=== PATIENT | male | born 1950 | race Caucasian/White ===

== ENCOUNTER 2023-08-12 12:21 | Inpatient (IN) | payer OTHER, MEDICAID ==
[~2023-08-12] VITALS: Ht 170.2 cm; Wt 71.7 kg
[2023-08-12 12:56] LABS: CHLORIDE 104 mEq/L (98-107); POTASSIUM 3.7 mEq/L (3.5-5.1); SODIUM 139 mEq/L (136-145)
[2023-08-12 12:57] LABS: CALCIUM 9.9 mg/dL (8.7-10.4); CARBON DIOXIDE 26 mEq/L (21-32)
[2023-08-12 13:00] LABS: BASOPHILS % 0.3 % (0.0-2.0); EOSINOPHILS % 3.1 % (0.0-5.0); HEMATOCRIT. 44.7 % (42.0-52.0); HEMOGLOBIN. 15.2 g/dL (14.0-18.0); LYMPHOCYTES % 46.1 % (20.0-50.0); MEAN CORPUSCULAR HEMOGLOBIN 33.8 pg (28.0-32.0); MEAN CORPUSCULAR HGB CONC 34.1 g/dL (31.0-37.0); MEAN CORPUSCULAR VOLUME 99.2 fL (80.0-94.0); MEAN PLATELET VOLUME 7.5 fl (7.4-10.4); MONOCYTES % 8.8 % (2.0-8.0); NEUTROPHILS % 41.7 % (40.0-76.0); PLATELET 213 x1000/uL (130-400); RED CELL DISTRIBUTION WIDTH 15.4 % (11.6-14.6)
[2023-08-12 13:02] LABS: GLUCOSE 92 mg/dL (70-105); TROPONIN I HIGH SENSITIVITY 9 ng/L (3.0-53); UREA NITROGEN BLOOD 18 mg/dL (9-23)
[2023-08-12 13:03] LABS: ALANINE AMINOTRANSFERASE 25 IU/L (10-49)
[2023-08-12 13:04] LABS: ALBUMIN 4.3 g/dL (3.2-4.8); ASPARTATE AMINOTRANSFERASE 30 IU/L (<34); BILIRUBIN TOTAL 1.5 mg/dL (0.1-1.0); PROTEIN TOTAL 8.1 g/dL (6.0-8.3)
[2023-08-12] MEDS: HYDRALAZINE 20MG/ML VIAL IV ONE (13:16)
[2023-08-12 13:17] LABS: PROTHROMBIN TIME 11.1 sec (9.6-11.0)
[2023-08-12] MEDS: IOHEXOL-350 100 ML BOTTLE ONE (14:26)
[2023-08-12 14:49] LABS: TROPONIN I HIGH SENSITIVITY 11 ng/L (3.0-53)
[2023-08-12] MEDS: ENOXAPARIN 80MG/0.8ML SYR SUBCUT SCH (15:41)
[2023-08-12 20:00] VITALS: PULSE 78; RESP 17; TEMP 98.1
[2023-08-12 21:03] VITALS: BP 139/96; PULSE 69; RESP 17; TEMP 98.1
[2023-08-12] MEDS ORDERED: IPRATROPIUM/ALBUTEROL 0.5-3(2.5)MG/3ML NEB HHN PRN (22:45)
[2023-08-12] MEDS ORDERED: HYDROCODONE/ACETAMINOPHEN 5/325MG TABLET PO PRN (22:45)
[2023-08-12] MEDS ORDERED: ACETAMINOPHEN 325MG TABLET PO PRN (22:45)
[2023-08-12] MEDS ORDERED: ONDANSETRON HCL 4MG/2ML INJ IV PRN (22:45)
[2023-08-13] VITALS (8 sets, daily range): BP systolic 126–165; BP diastolic 79–99; PULSE 68–86; RESP 16–21; TEMP 98–98.2
[2023-08-13 05:35] LABS: CLARITY URINE CLEAR (CLEAR); COLOR URINE DARK YELLOW (YELLOW); GLUCOSE URINE NEGATIVE (NEGATIVE); KETONES URINE TRACE (NEGATIVE); LEUKOCYTE ESTERASE URINE NEGATIVE (NEGATIVE); NITRITE URINE NEGATIVE (NEGATIVE); OCCULT BLOOD URINE NEGATIVE (NEGATIVE); PH URINE 5.5 (4.5-8.0); PROTEIN URINE 1+ (NEGATIVE); UROBILINOGEN URINE 0.2 E.U./dL (0.2-1.0)
[2023-08-13 07:21] LABS: WBC URINE 0-2 /hpf (0-2)
[2023-08-13 07:22] LABS: BACTERIA URINE NONE SEEN; RBC URINE 0-2 /hpf (0-2); SQUAMOUS EPITHELIAL CELL URINE NONE SEEN /lpf (RARE/1+)
[2023-08-13] MEDS ORDERED: NALOXONE HCL 0.4MG/ML VIAL IV PRN (10:00)
[2023-08-13] MEDS: ASPIRIN 81MG TABLET PO SCH (12:06)
[2023-08-13] MEDS: HYDRALAZINE HCL 25MG TABLET PO SCH (14:19)
[2023-08-13 16:00] LABS: CHLORIDE 103 mEq/L (98-107); SODIUM 137 mEq/L (136-145)
[2023-08-13 16:01] LABS: CALCIUM 9.9 mg/dL (8.7-10.4); CARBON DIOXIDE 27 mEq/L (21-32)
[2023-08-13 16:06] LABS: GLUCOSE 124 mg/dL (70-105); UREA NITROGEN BLOOD 18 mg/dL (9-23)
[2023-08-13 16:07] LABS: CREATINE KINASE MB FRACTION 0.9 ng/mL (0.5-3.6); TROPONIN I HIGH SENSITIVITY 11 ng/L (3.0-53)
[2023-08-13 16:08] LABS: ALANINE AMINOTRANSFERASE 19 IU/L (10-49); ALBUMIN 4.2 g/dL (3.2-4.8); ASPARTATE AMINOTRANSFERASE 25 IU/L (<34); CREATINE KINASE 75 IU/L (46-171)
[2023-08-13 16:09] LABS: BILIRUBIN TOTAL 2.1 mg/dL (0.1-1.0); PROTEIN TOTAL 7.7 g/dL (6.0-8.3)
[2023-08-13 16:12] LABS: BASOPHILS % 0.4 % (0.0-2.0); EOSINOPHILS % 3.7 % (0.0-5.0); HEMATOCRIT. 46.6 % (42.0-52.0); HEMOGLOBIN. 15.9 g/dL (14.0-18.0); LYMPHOCYTES % 37.2 % (20.0-50.0); MEAN CORPUSCULAR HEMOGLOBIN 33.3 pg (28.0-32.0); MEAN CORPUSCULAR HGB CONC 34.2 g/dL (31.0-37.0); MEAN CORPUSCULAR VOLUME 97.4 fL (80.0-94.0); MEAN PLATELET VOLUME 8.2 fl (7.4-10.4); MONOCYTES % 9.9 % (2.0-8.0); NEUTROPHILS % 48.8 % (40.0-76.0); PLATELET 208 x1000/uL (130-400); RED BLOOD CELL COUNT 4.78 mill/uL (4.7-6.1); RED CELL DISTRIBUTION WIDTH 15.7 % (11.6-14.6); WHITE BLOOD COUNT 6.3 x1000/uL (4.5-11.0)
[2023-08-13] MEDS: ENOXAPARIN 80MG/0.8ML SYR SUBCUT SCH (19:02)
[2023-08-14] VITALS: BP 150/99; PULSE 90; RESP 16; TEMP 98.1
[2023-08-14 03:11] LABS: *AMPHETAMINES SCREEN URINE NEGATIVE (NEGATIVE); *BARBITURATES SCREEN URINE NEGATIVE (NEGATIVE); *BENZODIAZEPINES SCREEN URINE NEGATIVE (NEGATIVE); *COCAINE SCREEN URINE NEGATIVE (NEGATIVE)
[2023-08-14 03:12] LABS: CANNABINOID URINE SCREEN NEGATIVE (NEGATIVE); ECSTASY MDMA SCREEN URINE NEGATIVE (NEGATIVE); METHADONE URINE SCREEN NEGATIVE (NEGATIVE); OPIATES URINE SCREEN NEGATIVE (NEGATIVE); PHENCYCLIDINE URINE SCREEN NEGATIVE (NEGATIVE)
[2023-08-14 04:00] VITALS: BP 132/85; PULSE 70; RESP 22; TEMP 98.2
[2023-08-14 07:09] LABS: CARBON DIOXIDE 26 mEq/L (21-32); CHLORIDE 103 mEq/L (98-107); POTASSIUM 4.1 mEq/L (3.5-5.1); SODIUM 137 mEq/L (136-145)
[2023-08-14 07:10] LABS: CALCIUM 9.8 mg/dL (8.7-10.4)
[2023-08-14 07:14] LABS: BASOPHILS % 0.4 % (0.0-2.0); HEMATOCRIT. 44.9 % (42.0-52.0); HEMOGLOBIN. 15.6 g/dL (14.0-18.0); LYMPHOCYTES % 43.5 % (20.0-50.0); MEAN CORPUSCULAR HEMOGLOBIN 33.9 pg (28.0-32.0); MEAN CORPUSCULAR HGB CONC 34.7 g/dL (31.0-37.0); MEAN CORPUSCULAR VOLUME 97.5 fL (80.0-94.0); MONOCYTES % 8.1 % (2.0-8.0); PLATELET 204 x1000/uL (130-400); RED CELL DISTRIBUTION WIDTH 15.3 % (11.6-14.6); WHITE BLOOD COUNT 6.6 x1000/uL (4.5-11.0)
[2023-08-14 07:15] LABS: CREATININE 0.9 mg/dL (0.6-1.3); GLUCOSE 91 mg/dL (70-105); UREA NITROGEN BLOOD 19 mg/dL (9-23)
[2023-08-14 08:49] VITALS: BP 145/96; PULSE 94; RESP 20; TEMP 98.4
[2023-08-14 12:00] VITALS: BP 142/91; PULSE 60; RESP 18; TEMP 98.2
[2023-08-14 16:00] VITALS: BP 138/87; PULSE 60; RESP 15; TEMP 98
[2023-08-14 20:00] VITALS: BP 123/99; PULSE 65; RESP 16; TEMP 99.9
[2023-08-14] MEDS: METOPROLOL TARTRATE 25MG TABLET PO SCH (20:17)
[2023-08-14] MEDS: ATORVASTATIN CALCIUM 40MG TABLET PO SCH (20:17)
[2023-08-15] VITALS: BP 128/88; PULSE 65; RESP 15; TEMP 98.9
[2023-08-15 04:00] VITALS: BP 115/72; PULSE 60; RESP 16; TEMP 98
[2023-08-15 08:00] VITALS: BP 153/89; PULSE 84; RESP 16; TEMP 97.9
[2023-08-15] MEDS ORDERED: HYDR25TA78 MT (08:20)
[2023-08-15] MEDS ORDERED: APIX5TAB MT (08:20)
[2023-08-15] MEDS: LOSARTAN 25 MG TABLET PO SCH (11:20)
[2023-08-15 12:00] VITALS: BP 138/91; PULSE 65; RESP 16; TEMP 98.5
[2023-08-15 14:52] VITALS: BP 138/91; PULSE 65; TEMP 98.5; O2SAT 99
[2023-08-15] MEDS ORDERED: APIXABAN 5 MG TABLET PO SCH (17:00)
== END 2023-08-15 15:35 | disposition home health service (06) | DRG 176 ==
LOC: ER 13:57 → EDBEDREQ 15:04 → EDBEDREQTM 16:32 → EDBEDREQ 16:32 → 5WST 16:57 → 3WST 20:27
PROVIDERS: ADMIT Internal Medicine; ATTEND Internal Medicine
DX: I26.99 Other pulmonary embolism without acute cor pulmonale (principal); I71.21 Aneurysm of the ascending aorta, without rupture; I16.0 Hypertensive urgency; I10 Essential (primary) hypertension; I71.40 Abdominal aortic aneurysm, without rupture, unspecified; I25.10 Atherosclerotic heart disease of native coronary artery without angina pectoris; Z85.528 Personal history of other malignant neoplasm of kidney; Z92.3 Personal history of irradiation; Z92.21 Personal history of antineoplastic chemotherapy; Z79.01 Long term (current) use of anticoagulants
CPT/HCPCS: 36415; 71045; 71275; 80048; 80053; 80305; 81003; 82550; 82553; 83880; 84484; 85025; 87070; 93005; 93306; 93970; 99291; 99292; J1650; Q9967